=== PATIENT | female | born 1950 | race Caucasian/White ===

== ENCOUNTER → 2016-11-11 | Outpatient (CLI) | payer OTHER ==
[~2016-11-11] MED LIST: FLAX SEED OIL; LEVO75TA33 PO; MULT-506 PO
--- NOTE | 2016-11-12 13:55 | MAMMOGRAPHY REPORT ---
BILATERAL DIGITAL SCREENING MAMMOGRAM TOMOSYNTHESIS WITH CAD: 11/11/2016 CLINICAL HISTORY: Routine screening. Patient has no complaints. TECHNIQUE: Breast tomosynthesis in addition to standard 2D mammography was performed. Current study was also evaluated with a Computer Aided Detection (CAD) system. COMPARISON: Comparison is made to exams dated: 11/08/2015 mammogram, 11/04/2014 mammogram, 11/02/2013 ma mmogram, 10/23/2012 mammogram, 10/16/2011 mammogram, and 10/12/2010 mammogram - [facility]. BREAST COMPOSITION: There are scattered areas of fibroglandular density in both breasts. FINDINGS: No suspicious mass, architectural distortion or cluster of microcalcifications is seen. IMPRESSION: ACR BI-RADS CATEGORY 1: NEGATIVE There is no mammographic evidence of malignancy. A 1 year screening mammogram is recommended. The pa tient will receive written notification of the results. Approximately 10% of breast cancers are not detected with mammography. A negative mammographic report should not delay biopsy if a clinically suggestive mass is present. Chastity warren/helena:11/11/2016 16:15:06 Smash Fixer: Kasia Guzmán, [facility] letter sent: Normal 1/2 BI-RADS Code: ACR BI-RADS Category 1: Negative
== END | disposition home or self-care (01) ==
LOC: C.MAMM 07:38
PROVIDERS: ATTEND Obstetrics & Gynecology
DX: Z12.31 Encounter for screening mammogram for malignant neoplasm of breast (principal)

== ENCOUNTER → 2017-11-14 | Outpatient (CLI) | payer OTHER ==
--- NOTE | 2017-11-14 15:28 | MAMMOGRAPHY REPORT ---
BILATERAL DIGITAL SCREENING MAMMOGRAM TOMOSYNTHESIS WITH CAD: 11/14/2017 CLINICAL HISTORY: Routine screening. Patient has no complaints. TECHNIQUE: The study was acquired using full field digital technology and interpreted from soft copy. Breast tomosynthesis in addition to standard 2D mammography was performed. Current study was also ev aluated with a Computer Aided Detection (CAD) system. COMPARISON: Comparison is made to exams dated: 11/11/2016 mammogram, 11/08/2015 mammogram, 11/04/2014 [place] mogram, 11/02/2013 mammogram, 10/23/2012 mammogram, and 10/16/2011 mammogram - [facility]. BREAST COMPOSITION: There are scattered areas of fibroglandular density in both breasts. FINDINGS: No suspicious masses, calcifications, or areas of architectural distortion are noted in either breast . There has been no significant interval change compared to prior exams. IMPRESSION: ACR BI-RADS CATEGORY 1: NEGATIVE There is no mammographic evidence of malignancy. A 1 year screening mammogram is recommended.( 019) The patient will receive written notification of the results. Some breast cancers are not detected with mammography. A negative mammographic report should not mario y biopsy if a clinically suggestive mass is present. Mouna Raymundo M.D. ah/:11/14/2017 07:56:37 Staff Radiologist: RT Leon(Olayinka)(M), [facility] letter sent: Normal 1/2 BI-RADS Code: ACR BI-RADS Category 1: Negative
== END | disposition home or self-care (01) ==
LOC: C.MAMM 07:39
PROVIDERS: ATTEND Internal Medicine
DX: Z12.31 Encounter for screening mammogram for malignant neoplasm of breast (principal)

== ENCOUNTER 2022-07-12 09:19 | Observation (INO) ==
--- NOTE | 2022-06-11 15:09 | PAT Medication Instructions ---
Medication Instructions Date of Service June 11, 2022 Home Medications Medication Instructions Recorded levothyroxine 75 mcg tablet 75 mcg PO DAILY #90 tabs 04/17/21 meloxicam 7.5 mg tablet 7.5 mg PO DAILY #90 tabs 10/29/21 lisinopril 10 mg tablet 10 mg PO DAILY #90 tabs 02/25/22 flaxseed oil 1,000 mg capsule 1,000 mg PO HS multivitamin 1 tab PO HS levothyroxine 75 mcg tablet 75 mcg PO DAILY meloxicam 7.5 mg tablet 7.5 mg PO DAILY lisinopril 10 mg tablet 10 mg PO DAILY calcium carbonate 600 mg-vitamin D3 5 mcg (200 unit) tablet (Calcium 600 + D(3)) 1 tab PO HS zinc 50 mg capsule 50 mg PO HS ASK your surgeon for instructions meloxicam 7.5 mg tablet 7.5 mg PO DAILY STOP taking 2 weeks before surgery flaxseed oil 1,000 mg capsule 1,000 mg PO HS DO NOT take the morning of surgery lisinopril 10 mg tablet 10 mg PO DAILY Take morning of surgery With a small sip of water, OTHERWISE NOTHING TO EAT OR DRINK AFTER MIDNIGHT: levothyroxine 75 mcg tablet 75 mcg PO DAILY Take evening before surgery multivitamin 1 tab PO HS calcium carbonate 600 mg-vitamin D3 5 mcg (200 unit) tablet (Calcium 600 + D(3)) 1 tab PO HS zinc 50 mg capsule 50 mg PO HS Other Notes If you have any questions please call us at [phone] or [phone] or [phone] or [phone]
--- NOTE | 2022-06-18 10:27 | Anesthesiology Consultation ---
Date of Service June 18, 2022 Assessment & Plan (1) Encounter for pre-operative examination: - check CBC with diff STAT am DOS. - Outpatient joint pathway: Per surgeon and patient, plan for outpatient joint program. Upon review of chart- patient is an acceptable candidate for Same Day Joint Program from anesthesia perspective pending perioperative course. Pending patient is motivated, has good support and surgeon's office completes Same Day Joint Program preop requirements- patient may proceed with outpatient TKA. Chart Review Chart Review: Acceptable Risk for Surgery and Patient seen in Pre Admission Testing Teaching & Discussion Pre-Anesthesia Teaching/Discussion Notes: Instructed NPO after midnight before surgery, except medications with 15 cc of water. Medication instructions provided according to the PAT guidelines. History Surgery Operation Date: 04/15/22 10:40 Proposed Procedures p Left Total Knee Arthroplasty - Jenaro Malcolm DO Operation Date: 07/12/22 09:25 Proposed Procedures p Left Total Knee Arthroplasty - Jenaro Malcolm DO Operation Date: 07/12/22 14:00 Proposed Procedures p Left Total Knee Arthroplasty - Jenaro Malcolm DO Height/Weight Height: 5 ft 3 in Weight: 72.3 kg Allergies Allergy/AdvReac Type Severity Reaction Status Date / Time No Known Allergies Allergy Verified 06/11/22 08:24 Medications Home Medications Medication Instructions Recorded Confirmed Last Taken flaxseed oil 1,000 mg capsule 1,000 mg PO HS 02/20/18 06/11/22 04/15/18 multivitamin 1 tab PO HS 02/20/18 06/11/22 04/15/18 levothyroxine 75 mcg tablet 75 mcg PO DAILY #90 tabs 04/17/21 06/11/22 Unknown meloxicam 7.5 mg tablet 7.5 mg PO DAILY #90 tabs 10/29/21 06/11/22 Unknown lisinopril 10 mg tablet 10 mg PO DAILY #90 tabs 02/25/22 06/11/22 Unknown calcium carbonate 600 mg-vitamin 1 tab PO HS 06/11/22 06/11/22 Unknown D3 5 mcg (200 unit) tablet (Calcium 600 + D(3)) zinc 50 mg capsule 50 mg PO HS 06/11/22 06/11/22 Unknown meloxicam 15 mg tablet 15 mg PO DAILY #30 tabs 06/18/22 06/18/22 Unknown Past Medical History Medical History (Updated 06/18/22 @ 10:44 by Jana Crespo PA-C) GERD (gastroesophageal reflux disease) rare, stable per pt Hypertension controlled, stable per pt; white coat hypertension Hypothyroidism Osteopenia Patient denies h/o stroke, seizures, heart attack, heart failure, DM, blood clots or blood transfusions. Exercise / Class Metabolic Activity II 4-5 Yardwork/Stairs/Walk up hill (denies chest discomfort or shortness of breath with 1 FOS) Past Family History Family History Mother Breast cancer Pure hypercholesterolemia Denies family history of Ovarian cancer Prostate cancer Myocardial infarction Colorectal cancer Past Surgical History Surgical History History of cataract surgery B/L History of section History of colonoscopy History of detached retina repair left History of tonsillectomy and adenoidectomy History of tooth extraction wisdom teeth Past Anesthesia History No Hx of Anesthesia Complications and No Family Hx of Anesthesia Complications History of PONV No Hx of PONV and Hx of Motion Sickness Social History Smoking Status: Never smoker Do You Dip or Chew Tobacco: No Hx Alcohol Use: Yes Alcohol type: wine alcohol intake frequency: holidays/special occasions only Hx Substance Use: No substance use type: does not use Review of Systems Snoring, denies witnessed apneas. Patient denies chest pain, shortness of breath, dyspnea on exertion, fever, chills, cough, wheezing, or palpitations. Physical Exam Vital Signs Vitals BP 138/82 P 67 TEMP 98.6 SP02 97% on RA RESP 18 Physical Full cervical extension range of motion without pain TMD 3.5 finger breadths Mallampati Score 3 Dentition: multiple crowns and removable partial lower sides, denies chipped or loose teeth, implants Lungs: normal respiratory effort. Clear throughout to auscultation, no adventitious breath sounds Cardiac: regular rate and rhythm, no murmurs noted Carotid arteries: negative bruit bilat Lab Results Anesthesia Preop Results Results Anesthesia Widget: PT 11.1 Seconds (9.0-12.0) 06/18/22 PTT 25.9 Seconds (21.0-31.0) 06/18/22 INR 1.0 (0.9-1.1) 06/18/22 Blood Type O Negative 06/18/22 Antibody Screen NEGATIVE 06/18/22 Testing Laboratory Results 06/08/2022 WBC: 5.2 H/H: SODIUM: 142 POTASSIUM: 4.4 CHLORIDE: 103 CO2: 31 BUN: 16 CREATININE: 0.9 GLUCOSE: 117 A1c: 5.6% Electrocardiogram Date: 06/18/22 NSR, rate 63 bpm Left axis deviation Incomplete RBBB Chest X-Ray Date: 06/18/22 No lines and tubes are seen. The cardiomediastinal silhouette is normal. The lungs are clear. No evidence of pleural effusion or pneumothorax. IMPRESSION: No acute chest disease. COVID-19 Risk Screen Screening Information COVID-19 Screen Date: 06/18/22 Exposure 21 Days Family/Household +COVID Last 21 Days: No Exposure 10 Days Any COVID Exposure Last 10 Days: No Symptoms Last 10 Days Experienced COVID Sx Last 10 Days: No + COVID 0-90 Days COVID + in Last 0-90 Days: No
[~2022-07-12 09:19] MED LIST changes: +ACETAMINOPHEN 500 MG TAB PO SCH; +BUPIVACAINE 0.5 % 5 MG/1 ML PF 10ML VIAL ONE; +FAMOTIDINE 20 MG TAB PO SCH; -FLAX SEED OIL; +GABAPENTIN 300 MG CAP PO SCH; -LEVO75TA33 PO; +LR 500ML BOLUS, THEN 15ML/HR IV SCH; +LR 60ML/HR IV SCH; -MULT-506 PO; +ORTHO JOINT MIX INFIL SCH; +ROPIVACAINE 0.5% 5 MG/ML 30 ML VIAL ONE; +TRANEXAMIC ACID 1,000 MG **IV Intra-op IV SCH; +TRANEXAMIC ACID 1,000 MG **IV Pre-op IV SCH; +ceFAZolin 2000MG 2,000 MG/15 ML SYR IV SCH; +dexAMETHasone 4 MG TAB PO SCH
[2022-07-12 09:55] LABS: Basophils # (auto) 0.06 K/uL (0-0.2); Eosinophils % (auto) 1.7 %; Hematocrit (blood only) 44.5 % (37.0-47.0); Hemoglobin 14.8 g/dl (12.0-16.0); Immature Granulocytes # (auto) 0.02 K/uL (0.01-0.20); Immature Granulocytes % (auto) 0.3 %; Lymphocytes % (auto) 23.5 %; Mean Corpuscular Hemoglobin 30.2 pg (25.0-34.0); Mean Corpuscular Hgb Conc 33.3 g/dL (32.0-36.0); Mean Corpuscular Volume 90.8 fL (80.0-100.0); Mean Platelet Volume 10.4 fL (9.4-12.4); Monocytes % (auto) 6.7 %; Neutrophils # (auto) 3.98 K/uL (1.40-6.50); Neutrophils % (auto) 66.8 %; Platelet Count 195 K/uL (130-400); RDW Coefficient of Variation 13.2 % (11.5-14.5); RDW Standard Deviation 43.4 fL (36.4-46.3); White Blood Count 5.96 K/ul (4.8-10.8)
[2022-07-12] MEDS ORDERED: fentaNYL citrate PF 100 MCG/2 ML VIAL ONE (10:02)
[2022-07-12] MEDS ORDERED: LIDOCAINE 2% MPF LOCAL 5 ML VIAL ONE (10:02)
[2022-07-12] MEDS ORDERED: PROPOFOL IV EMULSION 10 MG/ML 20 ML VIAL IV ONE ×2 (10:02→12:59)
[2022-07-12] MEDS ORDERED: MIDAZOLAM HCL 1 MG/ML 2ML VIAL ONE (10:02)
--- NOTE | 2022-07-12 10:36 | History & Physical Bridge Note ---
Date of Service July 12, 2022 History & Physical Bridge Note I have examined the patient, reviewed the History & Physical and in the interval since the performance of the History & Physical I have noted the following changes of clinical significance: no changes noted
[2022-07-12] MEDS ORDERED: ONDANSETRON INJ 2 MG/ML 2 ML VIAL IV PRN ×2 (10:58→15:26)
[2022-07-12] MEDS ORDERED: fentaNYL citrate PF 100 MCG/2 ML VIAL IV PRN (10:58)
[2022-07-12] MEDS ORDERED: HYDROmorphone INJ 2 MG/ML SYR/VIAL IV PRN (10:58)
[2022-07-12] MEDS ORDERED: ePHEDrine sulfate 50 MG/ML AMP IV PRN (10:58)
[2022-07-12] MEDS ORDERED: ATROPINE SULFATE 0.1 MG/ML 10ML SYR IV PRN (10:58)
[2022-07-12] MEDS ORDERED: ORTHO JOINT ANESTHETIC ONE (11:04)
[2022-07-12] MEDS ORDERED: ePHEDrine sulfate 50 MG/ML AMP ONE (12:38)
--- NOTE | 2022-07-12 13:04 | Operative Report ---
PG Post Operative Report Pre & Post Diagnosis Operation Date: 07/12/22 14:00 Preoperative diagnosis: Osteoarthritis of the left knee Postoperative diagnosis: Osteoarthritis of the left knee I identified the patient and participated in the time-out.: Yes Procedure Operation Date: 07/12/22 14:00 Procedure: Left total knee arthroplasty Surgeon Jenaro Malcolm DO Jewel Grinder Jenaro Woods PA-C Estimated Blood Loss 30 Findings Consistent with Post-Op Diagnosis Specimens Left femoral and tibial bone Description of Procedure Implants used: I used a Prasanna Persona total knee arthroplasty system with a size 8 narrow PS femur, C tibia, 28 oval patella, and a size 12 CPS polyethylene bearing. All components were cemented in place with Biomet cement. Emerald arrived [facility] for the above procedure. She was seen in the preoperative holding area and the operative extremity was identified and signed. She was given a preoperative antibiotic, TXA, a spinal anesthetic and an adductor nerve block. She was taken back to the operating room and laid on the table in supine position. She was given basic sedation. The operative knee was then prepped and draped in sterile fashion. A timeout was done, and the patient and the operative extremity was properly identified. A midline incision was made directly over the patella. Dissection was taken d own to the extensor mechanism. A midvastus arthrotomy was used. The medial retinaculum was released and the fat pad was mostly excised. The knee was flexed and the ACL, PCL, and meniscus were removed. A drill was sent down the center of the femoral canal followed by an intramedullary gadiel. Off that gadiel a distal femoral cutting block was placed. 9 mm was resected off the distal femur at 5 of valgus. A posterior referencing AP sizing guide was then placed on the distal femur. The femur measured to be a size 8. 2 drill holes were placed in 3 of external rotation. A 4-in-1 cutting block was then impacted into place. Anterior, posterior, and chamfer cuts were then made. The proximal tibia was then exposed. An external tibial alignment guide was placed. A tibial cut guide was then anchored in place and the proximal tibia was then resected. The posterior aspect of the knee was then opened up and any additional meniscus fragments and osteophytes were removed. The tibia measured to be a size C. The tibial plate was then placed in the appropriate rotation and the tibia was drilled and punched. Trial components were then placed. I used a size 12 CPS polyethylene insert. The knee was brought through a full range of motion and felt to be stable. The peg holes for the femoral component were then drilled. The patella was then everted and 9 mm was resected off the posterior aspect of the patella. The patella measured to be a size 28 oval. 3 peg holes were then drilled. A trial patella was placed. The knee was once again brought through a full range of motion and felt to be stable. Trial components were then removed. The surrounding soft tissues were injected with 100 cc of an orthopedic pain control cocktail. All components were then cemented into place with Biomet cement. The final polyethylene insert was then snapped into place. Once cement was dry the tourniquet was deflated. Hemostasis was obtained. A dilute betadyne lavage was then done for 3 minutes. The joint was then irrigated with normal saline solution. The midvastus arthrotomy was then closed with #1 Vicryl suture. The skin was closed with 2-0 Vicryl, 3-0V lock suture, and traci. A soft compressive dressing was placed. She was then transferred to a hospital bed and taken to the postanesthesia care unit in stable condition. She tolerated the procedure well. Jenaro Woods PA-C, was present for the entire procedure. He was critical for patient positioning, prepping, draping, retraction exposure, wound closure and application of sterile dressing. I attest to the content of the Intraoperative Record and any orders documented therein. Any exceptions are noted below.
--- NOTE | 2022-07-12 14:01 | Anesthesiology Progress Note ---
Date of Service July 12, 2022 Anesthesia Post Procedure Vital Signs Vital Signs: Temp Pulse Pulse Resp BP BP Pulse Ox 07/12/22 13:50 80 16 136/87 95 07/12/22 13:40 83 18 129/79 94 07/12/22 13:30 36.2 C L 89 16 121/91 95 07/12/22 09:54 36.9 C 79 20 159/93 H 98 O2 Del Method 07/12/22 13:50 Room Air 07/12/22 13:40 Room Air 07/12/22 13:30 Room Air 07/12/22 09:54 Room Air Transfer of Care Handoff Completed per policy Notes Mental Status: alert / awake / arousable Patient Amnestic to Procedure: Yes Nausea / Vomiting: adequately controlled Pain: adequately controlled Airway Patency, RR, SpO2: stable & adequate BP & HR: stable & adequate Hydration State: stable & adequate Neuraxial Anesthesia: was administered and sensory block is resolving Anesthetic Complications: no major complications apparent
--- NOTE | 2022-07-12 14:11 | XRay Report ---
LEFT KNEE 2 VIEWS History: Left total knee arthroplasty. Degenerative arthritis. Postop. FINDINGS: The patient is status post a left total knee arthroplasty. The hardware is intact. No fract ure or dislocation. Skin traci are in place. IMPRESSION: Left total knee arthroplasty. No evidence for hardware complication. ACT 112: Negative or not required by law. Electronically signed by: Paul Soler M.D. 07/12/2022 2:09 PM
[2022-07-12] MEDS ORDERED: oxyCODONE HCL IR 5 MG TAB (IMMEDIATE RELEASE) PO PRN (15:26)
[2022-07-12] MEDS ORDERED: NALOXONE HCL 0.4 MG/1 ML VIAL/CARP IV PRN (15:26)
[2022-07-12] MEDS ORDERED: MAGNESIUM HYDROXIDE SUSP 30 ML UDC PO PRN (15:26)
[2022-07-12] MEDS ORDERED: SODIUM CHLORIDE 0.9% 1000ML 1,000 ML IV SCH (15:26)
[2022-07-12] MEDS ORDERED: HYDROmorphone INJ 0.5 MG/0.5 ML SYR IV PRN (15:26)
[2022-07-12] MEDS ORDERED: METOCLOPRAMIDE HCL INJ 5 MG/ML 2 ML VIAL IV PRN (15:26)
[2022-07-12] MEDS ORDERED: bisacodyL 10 MG SUPP PR PRN (15:26)
[2022-07-12] MEDS: KETOROLAC TROMETHAMINE 15 MG/ML VIAL IV SCH ×2 (15:57→22:10)
[2022-07-12] MEDS: ACETAMINOPHEN 500 MG TAB PO SCH ×2 (15:57→22:10)
[2022-07-12] MEDS: ceFAZolin 2000MG 2,000 MG/15 ML SYR IV SCH (19:51)
[2022-07-12] MEDS: ASPIRIN 81 MG ECTAB PO SCH (19:52)
[2022-07-12] MEDS: DOCUSATE SODIUM 100 MG CAP PO SCH (19:53)
[2022-07-12] MEDS ORDERED: SENNA 8.6 MG TAB PO SCH (21:00)
[2022-07-13] MEDS: KETOROLAC TROMETHAMINE 15 MG/ML VIAL IV SCH ×2 (04:57→09:00)
[2022-07-13] MEDS: ceFAZolin 2000MG 2,000 MG/15 ML SYR IV SCH (04:57)
[2022-07-13] MEDS: ACETAMINOPHEN 500 MG TAB PO SCH (05:00)
--- NOTE | 2022-07-13 07:44 | Orthopedic Progress Note ---
Date of Service July 13, 2022 Assessment & Plan (1) Status post left knee replacement: Overall she is doing very well. She is not having much pain in the left knee. She will be seen by physical therapy today for ambulation and range of motion exercises. She is on aspirin for DVT prophylaxis. She can be discharged home later today. She will follow-up with orthopedics in 2 weeks. Timoteo Corbin was seen and examined at bedside this morning. Overall she is doing very well. She is not having much pain in the left knee. She has been up and ambulating to the bathroom. She has no complaints.. Review of Systems All systems reviewed & are unremarkable except as noted in HPI & below. Physical Exam On physical examination of the left knee, the dressing is clean and dry. Her leg is held in full extension. She has active dorsiflexion plantarflexion of her left ankle.. Results & Data Results & Data Laboratory Results . Diagnostic Findings Postoperative x-rays of the left knee show the prosthesis to be in anatomic alignment without any evidence of fracture, dislocation, or loosening.. PG Care Time/CCT Total # of Minutes Spent Total Time Spent with Patient: Total time spent is greater than 50% in coordination of care (as documented) at patient's floor/unit and/or counseling patient: Coding Level of Care Code 43913 Post Operative Follow-Up Diagnoses Status post left knee replacement Z96.652
--- NOTE | 2022-07-13 07:45 | Discharge Summary ---
Date of Service July 13, 2022 Principal Diagnosis Same as "Discharge Diagnosis" noted below under Discharge Instructions. Discharge Exam On physical examination of the left knee, the dressing is clean and dry. Her leg is held in full extension. She has active dorsiflexion plantarflexion of her left ankle.. Discharge Data Procedures Performed Operation Date: 07/12/22 14:00 <No data on this case meets the specified criteria> Ordered Studies 07/12/22 05:00 US - OR guided needle placemen Routine Hospital Course (1) Status post left knee replacement: On July 12, 2022 Emerald arrived to [facility] and underwent a left knee replacement without complication. She had a spinal anesthetic. Postoperatively she was started on aspirin for DVT prophylaxis and transferred to the general orthopedic floors. Her hospital course was uneventful. On postop day #1, her vital signs were stable and her pain was well controlled. She was able to PCP well with physical therapy doing ambulation and range of motion exercises. She was then discharged home. She will follow-up with orthopedics in 2 weeks. PG Care Time/CCT Total # of Minutes Spent Total Time Spent with Patient: Total time spent is greater than 50% in coordination of care (as documented) at patient's floor/unit and/or counseling patient: Discharge Plan Discharge Items Patient Disposition: Home - Home Health Services Reason For Visit: DJD Left Knee Discharge Diagnosis: Left knee replacement Activity: Per Instructions section Non-emergency contact: Surgeon Call non-emergency contact if: your wound has increased redness and your wound has increased drainage Follow-up/Referrals: Gabby Lucia MD [Primary Care Provider] - Diet: Regular Addtl Attending Provider Instructions: Activity and Therapy Recommendations: * If you are using [facility] then therapy will be provided at your home until they feel you have accomplished all of your goals. * If you are using [facility] then Physical Therapy will be provided until they feel you are ready to start Outpatient Physical Therapy. * If you are not using home therapy then Outpatient Physical Therapy should start about 3-5 days from your day of surgery. Therapy will last about 6-10 weeks * It is important not to put a pillow under your knee when you are relaxing or sleeping. It is just as important to make sure you are getting your knee perfectly straight as it is to regain your knee bend. * You were shown a series of exercises in the hospital. Do these exercises three times each day including the exercises you were shown in physical therapy. * Get up and walk several times each day. For the first four weeks, try not to stand or walk for more than one hour at a time. If you do stand or walk for more than one hour, you will not hurt anything, but your leg will likely swell. * As you feel comfortable, you may change from the walker or crutches to a cane and then to independent walking. Medications: * Narcotic You will likely be sent home from the hospital with a prescription for the narcotic pain medication that worked best throughout your stay. * Aspirin Most patients will be required to take Aspirin 81mg twice a day for 6 weeks after surgery. This is obtained [id number] and a prescription is not necessary. * Other medications may be prescribed for specific circumstances. If you have any questions, please call the office at . * Resume previous home medications unless otherwise instructed TEDs/Elastic Stockings: The white elastic stockings help limit swelling and prevent blood clots from forming in your legs.~ The more you wear them, the more they work. Wear them for six weeks. Dressing Care: The dressing can be changed after physical therapy on postop day #1. Daily dry dressing changes for a few days, especially if the incision is still draining some. If the incision is not draining then you may leave the traci open to air. If there is a little bit of drainage or if the traci are getting stuck on your clothing then cover the incision with a dry dressing. The traci will be removed at your 2 week follow-up appointment. Showering: You may shower 5 days from the day of surgery as long as the incision is no longer draining. You may shower with the traci exposed. Let soapy water run over the traci and pat them dry. Do not scrub or soak the incision. Things To Watch For: * Drainage from the incision site that occurs more than one week after your surgery. * Increased redness at the incision site. * Fever above 102 degrees Fahrenheit. * Unusual chest pain or shortness of breath. * Call [facility] at with any of the above problems Follow-Up Visit: Follow-up with Dr. Malcolm's PA (Jenaro Woods) 2-3 weeks after your day of surgery. He will remove your traci and answer any questions. If you have any additional questions or concerns, Dr Malcolm is usually in the office at the same time and will be available An appointment was probably scheduled when you signed-up for surgery in the office. If you have any questions call Office Instructions: More detailed instructions as well as Frequently Asked Questions were provided in a folder by our office when you signed-up for surgery. Please review these instructions when you get home. If you have any further questions or concerns, please feel free to call the office at [phone] Pending Studies at Discharge: No Stand-Alone Forms: [facility], Smoking Cessation Medications and DC Order Prescriptions: New aspirin 81 mg Tablet,Delayed Release (Dr/Ec) 81 mg PO BID 42 Days Qty: 84 0RF oxycodone-acetaminophen 5-325 mg tablet 1 tab PO Q6H PRN (Reason: pain) Qty: 30 0RF Continued meloxicam 7.5 mg tablet 7.5 mg PO DAILY Qty: 90 1RF lisinopril 10 mg tablet 10 mg PO DAILY Qty: 90 3RF meloxicam 15 mg tablet 15 mg PO DAILY Qty: 30 3RF levothyroxine 75 mcg tablet 75 mcg PO DAILY Qty: 90 3RF multivitamin Tablet 1 tab PO HS flaxseed oil 1,000 mg Capsule 1,000 mg PO HS calcium carbonate-vitamin D3 [Calcium 600 + D(3)] 600 mg-5 mcg (200 unit) Tablet 1 tab PO HS zinc 50 mg Capsule 50 mg PO HS Admission Data Admit Date/Time: 07/12/22 13:30 Attending Provider: Jenaro Malcolm Admit Provider: Jenaro Malcolm Primary Care Provider: Gabby Lucia
[2022-07-13] MEDS ORDERED: dexAMETHasone 4 MG TAB PO SCH (08:00)
[2022-07-13] MEDS ORDERED: MULTIVITAMIN TAB PO SCH (09:00)
[2022-07-13] MEDS: DOCUSATE SODIUM 100 MG CAP PO SCH (09:00)
[2022-07-13] MEDS ORDERED: LEVOTHYROXINE SODIUM 75 MCG TABLET PO SCH (09:00)
[2022-07-13] MEDS ORDERED: lisinopril 10 MG TAB PO SCH (09:00)
[2022-07-13] MEDS: ASPIRIN 81 MG ECTAB PO SCH (09:00)
== END 2022-07-13 11:15 | disposition home health service (06) ==
LOC: ASU 09:19 → 3N 09:19